=== PATIENT | male | born 1945 | race Caucasian/White ===

== ENCOUNTER → 2023-10-01 | Outpatient (CLI) | payer OTHER, SELFPAY ==
--- NOTE | 2023-10-01 06:47 | ECHOD_ITS ---
Reason For Study: ISCHEMIC HEART DISEASE Procedure This was a 2D Doppler, Color Flow transthoracic echocardiogram. Exam performed in department. Left Ventricle Normal size and thickness. The left ventricular ejection fraction is 65 %. Diastolic function is indeterminate. Right Ventricle Normal right ventricle. Atria The left atrium is mildly enlarged. Normal right atrium. Lipomatous hypertrophy of the atrial septum. Mitral Valve Mild (1+) mitral valve insufficiency. Tricuspid Valve Trivial tricuspid valve insufficiency. Unable to estimate RV systolic pressure due to insufficient tricuspid regurgitant envelope. Aortic Valve Moderate diffuse aortic valve calcification. Moderate aortic stenosis. Mild (1+) aortic valve insufficiency. Pulmonic Valve The pulmonic valve is not well visualized. Great Vessels Normal sized aortic root. Pericardium/Pleural No pericardial effusion. MMode/2D Measurements & Calculations LVIDd: 5.3 cm IVSd: 0.93 cm LVOT diam: 2.1 cm LVIDs: 3.6 cm LVPWd: 1.1 cm LVOT area: 3.3 cm2 RVDd: 3.0 cm FS: 33.1 % Ao root diam: 3.2 cm LAV(MOD-bp): 83.4 ml LVAd ap4: 33.1 cm2 LAV(MOD-bp) Indexed: 39.7 ml/m2 LVLd ap4: 8.9 cm LAV(MOD-sp2): 82.2 ml EDV(MOD-sp4): 107.3 ml LAV(MOD-sp4): 80.5 ml EDV(sp4-el): 105.1 ml LVAs ap4: 16.6 cm2 LVLs ap4: 7.2 cm ESV(MOD-sp4): 34.8 ml ESV(sp4-el): 32.4 ml EF(MOD-sp4): 67.5 % EF(sp4-el): 69.2 % LVAd ap2: 27.8 cm2 SV(MOD-sp4): 72.5 ml SV(MOD-sp2): 53.6 ml LVLd ap2: 8.2 cm EDV(MOD-sp2): 80.4 ml EDV(sp2-el): 79.3 ml LVAs ap2: 13.6 cm2 LVLs ap2: 6.3 cm ESV(MOD-sp2): 26.8 ml ESV(sp2-el): 24.8 ml EF(MOD-sp2): 66.6 % SV(sp4-el): 72.7 ml LA dimension(2D): 4.3 cm LA A4 area: 23.9 cm2 RA A4 area: 22.0 cm2 TAPSE: 3.1 cm Time Measurements MV dec time: 0.16 sec Doppler Measurements & Calculations MV E max reji: 100.4 cm/sec Lat Peak E' Reji: 8.9 cm/sec Med Peak E' Reji: 9.8 cm/sec MV A max reji: 108.5 cm/sec E/E' lat: 11.3 E/E' med: 10.3 MV E/A: 0.93 MV V2 max: 113.2 cm/sec MV P1/2t max reji: 93.4 cm/sec Ao V2 max: 362.3 cm/sec MV max P.1 mmHg MV P1/2t: 63.3 msec Ao max P.5 mmHg MV V2 mean: 64.9 cm/sec Ao V2 mean: 250.1 cm/sec MV mean P.9 mmHg MV dec slope: 431.8 cm/sec2 Ao mean P.3 mmHg MV V2 VTI: 27.6 cm MVA(P1/2t): 3.5 cm2 Ao V2 VTI: 82.7 cm AV (velocity ratio): 0.32 MVA(VTI): 3.2 cm2 CHEY(I,D): 1.1 cm2 CHEY(V,D): 0.94 cm2 AI max reji: 378.2 cm/sec LV V1 max: 103.4 cm/sec SV(LVOT): 88.0 ml AI max P.2 mmHg LV V1 max P.3 mmHg AI dec slope: 223.7 cm/sec2 LV V1 mean P.5 mmHg AI P1/2t: 495.3 msec LV V1 mean: 76.1 cm/sec LV V1 VTI: 26.6 cm PA V2 max: 108.6 cm/sec PA V2 mean: 72.6 cm/sec ECHO/Echo Complete Interpretation Summary The left ventricular ejection fraction is 65 %. Diastolic function is indeterminate. The left atrium is mildly enlarged. Lipomatous hypertrophy of the atrial septum. Mild (1+) mitral valve insufficiency. Moderate aortic stenosis. Mild (1+) aortic valve insufficiency. Ordering Physician: Sukumar Hunter Referring Physician: [facility] Performed By: Luisana Smith, ROXANN, RVT
== END | disposition home or self-care (01) ==
PROVIDERS: Referring Provider Chiropractor; Visit Provider Chiropractor
DX: I25.9 Chronic ischemic heart disease, unspecified (principal); I07.9 Rheumatic tricuspid valve disease, unspecified; I34.0 Nonrheumatic mitral (valve) insufficiency
CPT/HCPCS: 93306